=== PATIENT | male | born 1970 | race American Indian/Alaskan Native ===

== ENCOUNTER 2016-12-20 15:42 | Emergency (ER) | payer SELFPAY ==
[2016-12-20 16:36] VITALS: BP 135/99
== END 2016-12-21 03:07 | disposition left against medical advice (07) ==
LOC: ED 15:42
DX: L08.89 Other specified local infections of the skin and subcutaneous tissue (principal); Z53.21 Procedure and treatment not carried out due to patient leaving prior to being seen by health care provider